=== PATIENT | female | born 1965 | race Caucasian/White ===

== ENCOUNTER 2017-01-19 09:35 | Day surgery (SDC) | payer OTHER ==
[~2017-01-19] VITALS: Ht 167.6 cm; Wt 55.0 kg
[~2017-01-19 09:35] MED LIST: 0.9% Sodium Chloride 1,000 ML IV SCH; CHOL10008 PO; ETHI1TAB PO; IBUP800T28 PO; MAGN27TA2 PO; MULT-1018 PO; NPR500T PO; Sodium Chloride LOK Flush 10 mL Syringe IV PRN; TRAM50TA2 PO; fentaNYL-PF 50 mCg/mL 2 mL Inj IVPUSH PRN
[2017-01-19 10:13] VITALS: BP 137/81; PULSE 77; RESP 14; O2SAT 100
[2017-01-19 11:33] VITALS: BP 109/56; PULSE 70; RESP 14; O2SAT 100
[2017-01-19 11:42] VITALS: BP 98/57; PULSE 68; RESP 14; O2SAT 100
--- NOTE | 2017-01-19 11:43 | ENDO ---
[address] [address] ENDOSCOPY PROCEDURE PATIENT: ALLISON LENNON : 1965 MR#: [id number] ADMIT: 01/19/2017 JOB ID: [id number] PROCEDURE: Colonoscopy. INDICATIONS: Screening. The patient's ASA classification is 1, Mallampati score was 1. MEDICATIONS: Versed 4 mg, fentanyl 100 mcg. INSTRUMENT USED: PCFH-180AL PREPARATION QUALITY: Good. PROCEDURE DETAILS: After informed consent was obtained, the patient was brought to the GI suite, where she was placed on oxygen via nasal cannula and monitored with continuous pulse oximeter, telemetry, and blood pressure monitoring. A time-out was performed. Then, she was placed in a left lateral decubitus position and medications were administered for sedation. Digital rectal exam was performed which was unremarkable. The colonoscope was then inserted into the rectum and advanced under direct visualization to the cecum, which was identified by the presence of the ileocecal valve and appendiceal orifice. Once the cecum was reached, the colonoscope was withdrawn back to the rectum as the mucosa and lumen were examined. In the rectum, retroflexion was performed. Following retroflexion, remaining air in the rectum was suctioned, and procedure was completed. FINDINGS: Normal exam from rectum to cecum. IMPRESSION: Normal colonoscopy. RECOMMENDATIONS: Repeat colonoscopy in 10 years, sooner if symptoms should dictate. COMPLICATIONS: None. ESTIMATED BLOOD LOSS: Zero. cc: Primary Care Provider (unknown)
[2017-01-19 12:02] VITALS: BP 108/71; PULSE 61; RESP 14; O2SAT 100
== END 2017-01-19 23:59 | disposition home or self-care (01) ==
LOC: END 09:35
PROVIDERS: ATTEND Internal Medicine Gastroenterology
DX: Z12.11 Encounter for screening for malignant neoplasm of colon (principal); M54.5 Low back pain
CPT/HCPCS: G0121; G0500; J7030